=== PATIENT | female | born 1975 ===

== ENCOUNTER 2018-05-08 21:07 | Emergency (ER) | payer SELFPAY ==
[2018-05-08 21:16] VITALS: BP 152/82; PULSE 65; RESP 20; TEMP 98.5; O2SAT 100
--- NOTE | 2018-05-08 21:38 | ED PDOC ---
Lower Extremity Pain/Injury Time Seen by Provider: 05/08/18 21:16 Chief Complaint (Nursing): Lower Extremity Problem/Injury Chief Complaint (Provider): Right Leg Pain History Per: Patient History/Exam Limitations: no limitations Onset/Duration Of Symptoms: Other (x2 weeks) Current Symptoms Are (Timing): Still Present Additional Complaint(s): 42-year-old female presenting for evaluation of right thigh pain x2 weeks. Patient reports taking Tylenol and Aleve at home without relief. She denies any recent falls, trauma, bruising, or other injury. Past Medical History Reviewed: Historical Data, Nursing Documentation, Vital Signs Vital Signs: Last Vital Signs Temp 98.5 F 05/08/18 21:14 Pulse 65 05/08/18 21:14 Resp 20 05/08/18 21:14 BP 152/82 H 05/08/18 21:14 Pulse Ox 100 05/08/18 21:14 - Medical History PMH: No Chronic Diseases - Surgical History Surgical History: No Surg Hx - Family History Family History: States: Unknown Family Hx - Home Medications Home Medications: Ambulatory Orders Medication Instructions Recorded Cyclobenzaprine [Cyclobenzaprine 10 mg PO TID PRN #15 tab 05/02/15 HCl] Naproxen [Naprosyn Tab] 500 mg PO BID PRN #20 tab 05/02/15 - Allergies Allergies/Adverse Reactions: Allergies Allergy/AdvReac Type Severity Reaction Status Date / Time No Known Allergies Allergy Verified 05/02/15 12:03 Review of Systems ROS Statement: Except As Marked, All Systems Reviewed And Found Negative Musculoskeletal: Positive for: Leg Pain (right) Physical Exam - Reviewed Nursing Documentation Reviewed: Yes Vital Signs Reviewed: Yes - Physical Exam Appears: Positive for: Non-toxic, No Acute Distress Head Exam: Positive for: ATRAUMATIC Skin: Positive for: Normal Color, Warm Eye Exam: Positive for: Normal appearance Neck: Positive for: Normal Respiratory: Negative for: Respiratory Distress Extremity: Positive for: Normal ROM (right leg). Negative for: Tenderness, Deformity Neurologic/Psych: Positive for: Alert, Gait (patient ambulates with limp) - ECG O2 Sat by Pulse Oximetry: 100 (RA) Pulse Ox Interpretation: Normal Medical Decision Making Medical Decision Making: Plan: -Right Femur X-ray No acute fracture or dislocation. Discussed f/u with orthopedics. Scribe Attestation: Documented by Leandro Bustillo, acting as a scribe for Margarita aCno PA-C. Provider Scribe Attestation: All medical record entries made by the scribe were at my direction and personally dictated by me. I have reviewed the chart and agree that the record accurately reflects my personal performance of the history, physical exam, medical decision making, and the department course for this patient. I have also personally directed, reviewed, and agree with the discharge instructions and disposition. Disposition - Clinical Impression Clinical Impression: Leg pain - Patient ED Disposition Is Patient to be Admitted: No Counseled Patient/Family Regarding: Diagnosis, Need For Followup - Disposition Referrals: Laron Crespo III, MD [Staff Provider] - Disposition: Routine/Home Disposition Time: 22:11 Condition: GOOD Instructions: Muscle and Bone Pain (DC) Forms: [employer] (American) Print Language: IRAQI
--- NOTE | 2018-05-09 16:38 | RAD ---
Date of service: 05/08/2018 PROCEDURE: Right Femur Radiographs. HISTORY: pain x 2 weeks COMPARISON: None. TECHNIQUE: AP and Lateral Radiographs of the right femur. FINDINGS: FEMUR: Normal. No fracture. SOFT TISSUES: Normal. OTHER FINDINGS: None. IMPRESSION: Unremarkable radiographs of the right femur.
== END 2018-05-08 22:32 | disposition home or self-care (01) ==
LOC: H.ER 21:07
DX: M79.606 Pain in leg, unspecified (principal)

== ENCOUNTER 2018-10-16 08:40 | Emergency (ER) | payer OTHER, SELFPAY ==
[2018-10-16 08:45] VITALS: O2SAT 99
[2018-10-16 08:47] VITALS: BMI 24.7
[2018-10-16] MEDS ORDERED: Albuterol 0.083% Inhal Sol (2.5 mg/3 mL) UD INH STA ×3 (09:17→09:25)
--- NOTE | 2018-10-16 09:28 | ED PDOC ---
HPI: General Adult Time Seen by Provider: 10/16/18 08:52 Chief Complaint (Nursing): Flu-like Symptoms Chief Complaint (Provider): Flu-like symptoms History Per: Patient History/Exam Limitations: no limitations Onset/Duration Of Symptoms: Days (x5) Current Symptoms Are (Timing): Still Present Additional Complaint(s): Estelita Paige is a 42 year old female, with no significant past medical history, who presents to the emergency department complaining of fever, productive cough with phlegm, body aches and sore throat onset for x5 days. Patient states she did not measure her temperature. She has been taking Tylenol with no improvement. She denies any nausea, vomit, diarrhea, ear pain, shortness of breath or sick contacts. LMP on 09/15 and states it was normal. No further medical complaints. PMD: None provided. Past Medical History Reviewed: Historical Data, Nursing Documentation, Vital Signs Vital Signs: Last Vital Signs Temp 99.9 F H 10/16/18 08:42 Pulse 89 10/16/18 08:42 Resp 17 10/16/18 08:42 BP 140/86 10/16/18 08:42 Pulse Ox 99 10/16/18 08:42 - Medical History PMH: No Chronic Diseases Denies: Chronic Kidney Disease - Surgical History Surgical History: No Surg Hx - Family History Family History: States: Unknown Family Hx - Social History Current smoker - smoking cessation education provided: No Alcohol: None Drugs: Denies - Home Medications Home Medications: Ambulatory Orders Medication Instructions Recorded Albuterol 0.083% [Albuterol 0.083% 2.5 mg IH Q4H 10 Days neb 10/16/18 Inhal Eun (2.5 mg/3 ml) UD] Nebulizer Accessories [A.i.r.s. 1 each MC Q3H #1 kit 10/16/18 Nebulizer] Nebulizer and Compressor [Dalton 1 each MC Q3H 10 Days each 10/16/18 Choice Nebulizer] - Allergies Allergies/Adverse Reactions: Allergies Allergy/AdvReac Type Severity Reaction Status Date / Time No Known Allergies Allergy Verified 05/02/15 12:03 Review of Systems ROS Statement: Except As Marked, All Systems Reviewed And Found Negative Constitutional: Positive for: Fever, Other (body aches) ENT: Positive for: Throat Pain. Negative for: Ear Pain Respiratory: Positive for: Cough, Sputum Gastrointestinal: Negative for: Nausea, Vomiting, Diarrhea Physical Exam - Reviewed Nursing Documentation Reviewed: Yes Vital Signs Reviewed: Yes - Physical Exam Appears: Positive for: No Acute Distress Head Exam: Positive for: ATRAUMATIC, NORMAL INSPECTION, NORMOCEPHALIC Skin: Positive for: Normal Color, Warm, Dry Eye Exam: Positive for: Normal appearance, EOMI, PERRL ENT: Positive for: Pharynx Is (mildly erythematous). Negative for: Tonsillar Exudate, Tonsillar Swelling Neck: Positive for: Normal, Painless ROM, Supple Cardiovascular/Chest: Positive for: Regular Rate, Rhythm. Negative for: Murmur Respiratory: Positive for: Wheezing (bilateral). Negative for: Rales, Respiratory Distress Gastrointestinal/Abdominal: Positive for: Normal Exam, Soft. Negative for: Tenderness, Guarding, Rebound Back: Positive for: Normal Inspection. Negative for: L CVA Tenderness, R CVA Tenderness, Vertebral Tenderness Extremity: Positive for: Normal ROM (upper and lower extremities). Negative for: Deformity, Swelling Neurologic/Psych: Positive for: Alert, Oriented - ECG O2 Sat by Pulse Oximetry: 99 (RA) Pulse Ox Interpretation: Normal - Radiology X-Ray: Viewed By Me, Read By Radiologist X-Ray Interpretation: No Acute Disease - Progress Re-evaluation Time: 11:00 Condition: Improving,but remains with symptoms Medical Decision Making Medical Decision Making: Time: 08:52 Initial Impression: Viral illness Initial Plan: -- test --Chest two views (PA/LAT) [RAD] --Duoneb 2.5 mg INH --Duoneb 2.5 mg INH --Duoneb 2.5 mg INH --Reevaluation 10:02 CXR FINDINGS: LUNGS: No active pulmonary disease.. There is a tiny density seen in the right mid lung field that could represent vessel on end artifact or small granuloma or other parenchymal nodule not completely excluded. Follow-up chest radiograph in 2 months could be performed to assess stability. Alternatively,, nonemergent CT scan of the chest could be obtained. PLEURA: No significant pleural effusion identified. No pneumothorax apparent. CARDIOVASCULAR: No aortic atherosclerotic calcification present. Normal cardiac size. No pulmonary vascular congestion. OSSEOUS STRUCTURES: Mild multilevel degenerative spondylosis of the thoracic spine. VISUALIZED UPPER ABDOMEN: Normal. OTHER FINDINGS: None. IMPRESSION: No active disease. Tiny density right mid lung field may represent vessel on end artifact or granuloma. Repeat radiographs in 2 months could be performed to assess stability. Alternatively, follow-up nonemergent CT scan chest may be obtained. Scribe Attestation: Documented by Humberto Johnson, acting as a scribe for Leila Ferreira MD Provider Scribe Attestation: All medical record entries made by the Scribe were at my direction and personally dictated by me. I have reviewed the chart and agree that the record accurately reflects my personal performance of the history, physical exam, medi darien decision making, and the department course for this patient. I have also personally directed, reviewed, and agree with the discharge instructions and disposition. Disposition - Clinical Impression Clinical Impression: Bronchospasm with bronchitis, acute - Patient ED Disposition Is Patient to be Admitted: No Doctor Will See Patient In The: Office - Disposition Disposition: Routine/Home Disposition Time: 11:14 Condition: IMPROVED Prescriptions: Albuterol 0.083% [Albuterol 0.083% Inhal Eun (2.5 mg/3 ml) UD] 2.5 mg IH Q4H 10 Days neb Nebulizer Accessories [A.i.r.s. Nebulizer] 1 each MC Q3H #1 kit Nebulizer and Compressor [Dalton Choice Nebulizer] 1 each MC Q3H 10 Days each Instructions: Asthma in Adults Forms: [employer] (Croatian) - POA Present On Arrival: None
[2018-10-16] MEDS ORDERED: Albuterol 0.083% Inhal Sol (2.5 mg/3 mL) UD ONE (09:58)
--- NOTE | 2018-10-16 10:06 | RAD ---
Date of service: 10/16/2018 HISTORY: cough x 5 days COMPARISON: No prior. TECHNIQUE: Chest PA and lateral FINDINGS: LUNGS: No active pulmonary disease.. There is a tiny density seen in the right mid lung field that could represent vessel on end artifact or small granuloma or other parenchymal nodule not completely excluded. Follow-up chest radiograph in 2 months could be performed to assess stability. Alternatively,, nonemergent CT scan of the chest could be obtained. PLEURA: No significant pleural effusion identified. No pneumothorax apparent. CARDIOVASCULAR: No aortic atherosclerotic calcification present. Normal cardiac size. No pulmonary vascular congestion. OSSEOUS STRUCTURES: Mild multilevel degenerative spondylosis of the thoracic spine. VISUALIZED UPPER ABDOMEN: Normal. OTHER FINDINGS: None. IMPRESSION: No active disease. Tiny density right mid lung field may represent vessel on end artifact or granuloma. Repeat radiographs in 2 months could be performed to assess stability. Alternatively, follow-up nonemergent CT scan chest may be obtained.
[2018-10-16 11:37] VITALS: BP 132/92; PULSE 92; RESP 18; TEMP 99.7
== END 2018-10-16 11:30 | disposition home or self-care (01) ==
LOC: H.ER 08:40
DX: J20.9 Acute bronchitis, unspecified (principal)